=== PATIENT | male | born 1985 | race Caucasian/White ===

== ENCOUNTER 2024-11-25 07:58 | Emergency (ER) | payer OTHER ==
[~2024-11-25] VITALS: Ht 170.2 cm; Wt 127.0 kg
[2024-11-25 09:16] LABS: CORONAVIRUS COVID-19 AG Negative (NEGATIVE); INFLUENZA A AG Negative (NEGATIVE); INFLUENZA B AG Negative (NEGATIVE)
[2024-11-25] MEDS ORDERED: Ketorolac Tromethamine 30mg Vial IM ONE (09:25)
[2024-11-25] MEDS ORDERED: Albuterol 2.5 MG/3 ML VIAL INH SCH (09:25)
[2024-11-25 09:51] VITALS: BP 131/84
[2024-11-25] MEDS ORDERED: ALBU90OI INH (11:07)
== END 2024-11-25 11:11 | disposition home or self-care (01) ==
LOC: ER 07:58
PROVIDERS: Emergency Medicine
DX: J06.9 Acute upper respiratory infection, unspecified (principal); R06.2 Wheezing
CPT/HCPCS: 87428-QW; 94644; 94664; 96372; 99283-25; J1885